=== PATIENT | female | born 1930 | race Caucasian/White ===

== ENCOUNTER → 2016-08-28 | Outpatient (CLI) | payer MEDICARE, BC ==
[~2016-08-28] MED LIST: IBUPROFEN PO; MAXZIDE-25 MG1 UDTAB PO; MEDROL4 MG/DOSE- PO; PROCARDIA XL PO; TRIAMTERENE-HCT1 TA6 PO; VICODIN 5/1 TAB 5/50 PO; ZOCOR PO; ZYRTEC10 M2 PO
[2016-08-28 11:24] LABS: ALT (SGPT) 18 U/L (10-40); AST (SGOT) 22 U/L (10-42); BLOOD UREA NITROGEN 24 mg/dL (9-23); CALCIUM SERUM 9.6 mg/dL (8.4-10.2); CARBON DIOXIDE 32 mmol/L (22-31); CHLORIDE 106 mmol/L (100-111); CHOLESTEROL 172 mg/dL (0-200); CREATININE SERUM 0.8 mg/dL (0.6-1.4); GLOM FILT RATE Estimated ABOVE60 mL/min (>60); GLUCOSE FASTING 115 mg/dL (70-110); HDL CHOLESTEROL 52 mg/dL (35-95); LDL CHOLESTEROL 91 mg/dL (-130); LDL/HDL RATIO 2 RATIO (0-4); POTASSIUM 4.2 mmol/L (3.5-5.1); SODIUM 141 mmol/L (135-145); TRIGLYCERIDES 144 mg/dL (10-160)
== END | disposition home or self-care (01) ==
LOC: CLAB 09:49
DX: I10 Essential (primary) hypertension (principal); E78.5 Hyperlipidemia, unspecified
CPT/HCPCS: 36415; 80048; 80061; 84450; 84460